=== PATIENT | female | born 1970 | race Caucasian/White ===

== ENCOUNTER 2020-11-10 09:01 | Day surgery (SDC) | payer BC ==
[~2020-11-10 09:01] MED LIST: CEFAZOLIN 2 GM-D5W BAG** 2 GM/50 ML ML IV SCH; Lactated Ringers 1,000 ML IV SCH
[2020-11-10] MEDS ORDERED: Lactated Ringers 1,000 ML IV ONE ×2 (09:10→13:11)
[2020-11-10] MEDS ORDERED: CEFAZOLIN 2 GM-D5W BAG** 2 GM/50 ML ML IV ONE (09:10)
[2020-11-10 09:36] VITALS: O2SAT 100
[2020-11-10] MEDS ORDERED: SUBLIMAZE 100 MCG/2 ML ONE (12:43)
[2020-11-10] MEDS ORDERED: DIPRIVAN 200 MG/20 ML IV ONE (12:43)
[2020-11-10] MEDS ORDERED: Versed 2 MG/2 ML Injection ONE (12:43)
[2020-11-10] MEDS ORDERED: Decadron 4 MG INJ ONE (13:33)
[2020-11-10] MEDS ORDERED: TORAdol 30 mg Injection ONE (13:33)
[2020-11-10] MEDS ORDERED: Zofran 4 MG/2 ML VIAL ONE (13:33)
[2020-11-10 15:02] VITALS: BP 141/97; PULSE 58
--- NOTE | 2020-11-11 10:34 | OP ---
SURGERY DATE/TIME: 11/10/2020 1309 PREOPERATIVE DIAGNOSIS: Abnormal uterine bleeding. POSTOPERATIVE DIAGNOSIS: Abnormal uterine bleeding. PROCEDURE: Hysteroscopy D&C with NovaSure ablation. SURGEON: Dequan Bishop D.O. RESIDENT DIRECTOR: broadcast technician. ANESTHESIA: General. ESTIMATED BLOOD LOSS: Minimal. COMPLICATIONS: N one. INDICATIONS: The risks, benefits, indications and alternatives of the procedure were reviewed with the patient prior to the procedure. The patient understood the risk of infection, bleeding, bowel injury, bladder injury, ureteral injury, uterine perforation, pelvic infection, thromboembolic disorder associated with the surgery however desires to have this surgery as a possible means to alleviate her current medical condition. DESCRIPTION OF PROCEDURE AND FINDINGS: At this point the patient is taken to the operating room, given general sedation, placed in dorsal lithotomy position. Prepped and draped in the usual sterile fashion. A weighted speculum is then placed in the patient's vagina and the anterior lip of the cervix is grasped with a single tooth tenaculum. Endocervical dilators were advanced through the endocervical canal as a means to dilate the cervix and the uterus sounded to approximately 8 to 9 cm. From this point a 5 mm hysteroscope was then placed into the endocervical region where visualization of the uterine cavity appeared to be within normal limits. From this point the hysterectomy was then removed and the curette was then placed into the fundus of the uterus where curettage was performed in all quadrants of the uterus retrieving a mild to moderate amount of tissue. From this point the curette was removed and the NovaSure instrument was then placed through the endocervical canal where a measurement of 6 cm of length was given and a width of 2.8 cm. The NovaSure was then turned on for an ablative time of approximately 55 seconds. At the completion of the ablation the NovaSure was disengaged and then removed from the uterine cavity. From this point all other instruments were subsequently removed from the patient's vaginal region. The patient was then taken out of dorsal lithotomy position, was taken out of anesthesia and was then taken to the recovery room in stable condition. All instruments and laps were accounted for x2.
== END 2020-11-10 14:55 | disposition home or self-care (01) ==
LOC: SDC 09:01 → EDSTATUS 17:46
PROVIDERS: ATTEND Obstetrics & Gynecology
DX: N93.9 Abnormal uterine and vaginal bleeding, unspecified (principal)
CPT/HCPCS: 84703; J0690; J1100; J1885; J2250; J2405; J2704; J3010

== ENCOUNTER 2022-01-23 08:02 | Emergency (ER) | payer BC ==
[2022-01-23] MEDS ORDERED: XYLOCAINE 1% HCL 20 ML MDV IJ ONE (08:03)
--- NOTE | 2022-01-23 08:45 | ERPHSYRPT ---
- History of Present Illness Source: patient Exam Limitations: other (Poor historian) Patient Subjective Stated Complaint: Patient c/o of suspect kidney infection, body aches, joint aches, along with a sore throat, fever and vomiting each morning which started Friday 01/19. Triage Nursing Assessment: Patient to ED with suspect kidney infection. States her pain is a 4 at this time. interacting appropriately with nurse. VS WNL. Throat redness, no white patches noted. Physician History: 51 yo wf w B CVA pain x 4 days. Pt is currently being treated for a UTI per [facility]READ[facility] phone call w Bactrim. She was recently treated w another antibiotic for a UTI. She has mild nausea/occ vomiting/subjective fever/St/mild cough but denies dysuria/hematuria. Timing/Duration: other (4 days) Activites at Onset: none Onset Location: other (B CVA) Pain Radiation: none Severity of Pain-Max: mild Severity of Pain-Current: mild Prior abdominal problems: similar symptoms Sexual intercourse history: non-contributory Modifying Factors: Improves With: nothing Associated Symptoms: fever, nausea, vomiting, urinary frequency, lower back pain, No abdominal pain, No chills, No diaphoresis, No dysuria, No nocturia, No polyuria, No , No loss of bladder control, No lumps, No mass, No swelling Allergies/Adverse Reactions: No Known Drug Allergies Allergy (Verified 01/23/22 08:19) Home Medications: Sulfamethoxazole/Trimethoprim [Bactrim 400-80 mg Tablet] 1 tab PO BID 01/23/22 [History] Hx Tetanus, Diphtheria Vaccination/Date Given: Yes Hx Influenza Vaccination/Date Given: No Hx Pneumococcal Vaccination/Date Given: No Travel Risk - International Travel Have you traveled outside of the country in past 3 weeks: No - Coronavirus Screening Symptoms: Fever, Cough: New Onset, Vomiting/Diarrhea, Headaches/Body Aches/Fatigue Close contact with a COVID-19 positive Pt in past 14-21 Days: No - Vaccine Status Have you recieved a Covid-19 vaccination: No - Review of Systems Constitutional: No Symptoms, Fever Eyes: No Symptoms Ears, Nose, & Throat: No Symptoms, Throat Pain Respiratory: No Symptoms, Cough Cardiac: No Symptoms Abdominal/Gastrointestinal: Nausea, Vomiting Genitourinary Symptoms: No Symptoms, No Dysuria, No Frequency, No Hematuria, No Hesitancy, No Incontinence, No Urgency, No Urinary Retention, No Flank Pain, No Menorrhagia, No , No Vaginal Bleeding, No Vaginal Discharge, No Vaginal Itching Musculoskeletal: No Symptoms, Arthralgias Skin: No Symptoms Neurological: No Symptoms Psychological: No Symptoms Endocrine: No Symptoms Hematologic/Lymphatic: No Symptoms Immunological/Allergic: No Symptoms - Past Medical History Pertinent Past Medical History: Yes Neurological History: No Pertinent History ENT History: No Pertinent History Cardiac History: No Pertinent History Respiratory History: No Pertinent History Endocrine Medical History: Hypothyroidism Musculoskeletal History: No Pertinent History GI Medical History: No Pertinent History History: No Pertinent History Psycho-Social History: No Pertinent History Female Reproductive Disorders: Other Other Medical History: abnormal uterine bleeding - Past Surgical History Past Surgical History: Yes Neuro Surgical History: No Pertinent History Cardiac: No Pertinent History Respiratory: No Pertinent History Gastrointestinal: No Pertinent History Genitourinary: Other Musculoskeletal: No Pertinent History Female Surgical History: No Pertinent History Other Surgical History: had ureters relocated as child for vesicoureteral reflux - Social History Smoking Status: Current every day smoker How long have you smoked: age 17 Exposure to second hand smoke: Yes Drug Use: none Patient Lives Alone: No Significant Family History: no pertinent family hx - Nursing Vital Signs Nursing Vital Signs: Initial Vital Signs Temperature 98.4 F 01/23/22 08:10 Pulse Rate 100 H 01/23/22 08:10 Respiratory Rate 18 01/23/22 08:10 Blood Pressure 110/69 01/23/22 08:10 O2 Sat by Pulse Oximetry 100 01/23/22 08:10 Pain Scale Pain Intensity 3 Borderline tachy - Physical Exam General Appearance: no apparent distress Eye Exam: PERRL/EOMI, eyes nml inspection Ears, Nose, Throat Exam: normal ENT inspection, TMs normal, pharynx normal, ruth st mucous membranes Neck Exam: normal inspection, non-tender, supple, full range of motion Respiratory Exam: airway intact, crackles/rales (Faint B rales) Cardiovascular Exam: regular rate/rhythm, normal heart sounds, normal peripheral pulses, capillary refill <2 sec, No murmur, No friction rub Gastrointestinal/Abdomen Exam: soft, normal bowel sounds, tenderness, No distention Back Exam: CVA tenderness (B) Extremity Exam: normal inspection, normal range of motion Neurologic Exam: alert, oriented x 3, cooperative, medical records coder II-XII nml as tested, normal mood/affect, nml cerebellar function, nml station & gait, sensation nml, No motor deficits, No sensory deficit Skin Exam: normal color, warm, dry Lymphatic Exam: No adenopathy SpO2 Interpretation: normal SpO2: 100 O2 Delivery: Room Air - Course Nursing assessment & vital signs reviewed: Yes - CT Exams Abdomen/Pelvis CT Interpretation: Tele-radiologist Report (LLL 1.7cm subpleural nodule/infiltrate) Ordered Tests: Active Orders 24 hr Category Date Time Status ABDOMEN AND PELVIS W/0 CONTRAS [CT] Stat Exams 01/23/22 09:03 Taken HCG,QUALITATIVE URINE Stat Lab 01/23/22 08:40 Completed UA W/RFX CULTURE Stat Lab 01/23/22 08:34 Completed Medication Summary Discontinued Medications Generic Name Dose Route Start Last Admin Trade Name Freq PRN Reason Stop Dose Admin Ceftriaxone Sodium 1,000 mg 01/23/22 10:40 01/23/22 10:45 Ceftriaxone Sodium 1000 Mg Inj Vial IM 01/23/22 10:41 1,000 mg STAT ONE Administration Ceftriaxone Sodium Confirm 01/23/22 10:42 Ceftriaxone Sodium 1000 Mg Inj Vial Administered 01/23/22 10:43 Dose 1,000 mg .ROUTE .STK-MED ONE Ketorolac Tromethamine 30 mg 01/23/22 09:06 01/23/22 09:09 Ketorolac Tromethamine 30 Mg/Ml Inj IM 01/23/22 09:07 30 mg STAT ONE Administration Ketorolac Tromethamine Confirm 01/23/22 09:07 Ketorolac Tromethamine 30 Mg/Ml Inj Administered 01/23/22 09:08 Dose 30 mg .ROUTE .STK-MED ONE Lab/Rad Data: Laboratory Results 01/23/22 01/23/22 01/23/22 Range/Units Unknown 08:40 08:34 Urinalys Dipstick Clnc MAIN LAB Urine Color YELLOW (YELLOW) Urine Appearance CLEAR (CLEAR) Urine pH 7.5 (5-6) Ur Specific [place] 1.020 (1.005-1.025) POC Urine Protein Conf NEGATIVE (Negative) Urine Ketones NEGATIVE (NEGATIVE) Urine Nitrite NEGATIVE (NEGATIVE) Urine Bilirubin NEGATIVE (NEGATIVE) Urine Urobilinogen 1 (0-1) mg/dL Urine Leukocytes NEGATIVE (NEGATIVE) Urine WBC (Auto) NONE (0-5) /HPF Urine RBC (Auto) 3-5 (0-2) /HPF U Epithel Cells (Auto) RARE (FEW) /HPF Urine Bacteria (Auto) RARE (NEGATIVE) /HPF Urine RBC SMALL (0-5) Tyler/ul Unidentified Crystals 2-5 (NEGATIVE) /HPF Urine Mucus (Auto) SLIGHT (NEGATIVE) /HPF Ur Culture Indicated? NO Urine Glucose NEGATIVE (NEGATIVE) mg/dL Urine HCG, Qual NEGATIVE (Negative) Group A Strep Antibody NOT DETECTED (NEGATIVE) - Progress Progress: improved Progress Note: 01/23/22 10:41 1gm IM Rocephin Pt advised that she needs another CT of chest in 3 months to recheck nodule Counseled pt/family regarding: lab results, diagnosis, need for follow-up, rad results - Departure Departure Disposition: Home Clinical Impression: Pneumonia Condition: Stable Critical Care Time: No Referrals: MAYA ZAMUDIO [Primary Care Provider] - Follow up/PCP as directed Instructions: Pneumonia, Adult (DC) Additional Instructions: Levaquin once a day for 5 days Rest/Fluids Follow up with your family MD in 2-3 days You will need a repeat CT of chest in 3 months to see if nodule/pneumonia resolves Return to ER for increasing shortness of breath or temperature greater than 100.5 Forms: Work/School Release Form Prescriptions: Levofloxacin [Levofloxacin 250MG Tablet] 750 mg PO DAILY 5 Days #5 tab
[2022-01-23 08:57] LABS: Bacteria RARE /HPF (NEGATIVE); Epithelial Cells RARE /HPF (FEW); Mucus SLIGHT /HPF (NEGATIVE)
[2022-01-23 08:58] LABS: Appearance CLEAR (CLEAR); Bilirubin NEGATIVE (NEGATIVE); Glucose NEGATIVE (NEGATIVE); Urine Cultured Indicated? NO
[2022-01-23 08:59] LABS: Dipstick done @ ? MAIN LAB; Ketones NEGATIVE (NEGATIVE); Nitrite NEGATIVE (NEGATIVE); Ph 7.5 (5-6); Protein,Urine Dip NEGATIVE (Negative); RBC SMALL Ery/ul (0-5); Urobilinogen 1 mg/dL (0-1)
[2022-01-23] MEDS ORDERED: TORAdol 30 mg Injection ONE (09:07)
[2022-01-23] MEDS: TORAdol 30 mg Injection IM ONE (09:09)
[2022-01-23] MEDS ORDERED: Rocephin 1000 MG INJ ONE (10:42)
[2022-01-23] MEDS: Rocephin 1000 MG INJ IM ONE (10:45)
[2022-01-23 10:49] VITALS: BP 115/60; PULSE 88
[2022-01-23 17:55] VITALS: O2SAT 100
--- NOTE | 2022-01-23 21:07 | XRAY ---
Indication: Right back and right lower quadrant pain. Multiple contiguous axial images obtained through the abdomen and pelvis without contrast. Comparison: None Lung bases demonstrates patchy peripheral left lower lobe consolidating/nonconsolidating airspace disease. Heart is not enlarged. Noncontrasted stomach and bowel loops appear nonobstructed. Normal retrocecal appendix. Moderate diffuse scattered colonic fecal debris throughout. No free fluid/air. Remaining liver, gallbladder, pancreas, spleen, adrenal glands, kidneys, ureters, bladder, uterus, and aorta are unremarkable for noncontrast exam. Osseous structures intact. No ventral or inguinal hernias. Impression: 1. Moderate diffuse fecal stasis. 2. Left lower lobe consolidating/nonconsolidating airspace disease. 3. Remaining CT abdomen/pelvis without contrast exam is negative. Common: Preliminary interpretation made by [facility]. No critical discrepancy.
== END 2022-01-23 11:00 | disposition home or self-care (01) ==
LOC: ED 08:02
DX: J18.9 Pneumonia, unspecified organism (principal); R10.9 Unspecified abdominal pain; R11.2 Nausea with vomiting, unspecified; J02.9 Acute pharyngitis, unspecified; R05.9 Cough, unspecified; R50.9 Fever, unspecified; Z72.0 Tobacco use
CPT/HCPCS: 74176; 81015; 84703; 87651; 96372; 99284; J0696; J1885

== ENCOUNTER 2022-06-26 17:58 | Emergency (ER) | payer BC ==
[2022-06-26 19:13] VITALS: BP 155/79; PULSE 72; O2SAT 100
--- NOTE | 2022-06-26 19:20 | ERPHSYRPT ---
- History of Present Illness Time Seen by Provider: 06/26/22 19:16 Source: patient Exam Limitations: no limitations Patient Subjective Stated Complaint: stepped into hole 06/26/22 at appx 10am and felt a pop in her left ankle Triage Nursing Assessment: Patient's ROM with left ankle is limited. No bruising, no edema, no deformities, no wounds. Pedal and post tibial pulses WNL. Skin color WNL for race. Sensation intact. Physician History: twist left ankle and foot stepping in a hole. No other injuries and did not fall down. was able to keep walking today but as did not resolve came in to have it checked. tender dorsum left foot to sole and left lateral malleolus. full ROm otw without pain for hips, knees and opp side. dod not fall or hit other areas like head or abd or chest or back. Method of Injury: twisted Occurred: this morning Quality: constant, sharpness Severity of Pain-Max: moderate Severity of Pain-Current: moderate Lower Extremities Pain: foot: left, ankle: left Modifying Factors: Improves With: immobilization, movement Associated Symptoms: popping sensation Allergies/Adverse Reactions: No Known Drug Allergies Allergy (Verified 06/26/22 19:05) Home Medications: Meloxicam 7.5 mg PO DAILY 06/26/22 [History] Hx Tetanus, Diphtheria Vaccination/Date Given: No Hx Influenza Vaccination/Date Given: No Hx Pneumococcal Vaccination/Date Given: No Travel Risk - International Travel Have you traveled outside of the country in past 3 weeks: No - Coronavirus Screening Are you exhibiting any of the following symptoms?: No Close contact with a COVID-19 positive Pt in past 14-21 Days: No - Vaccine Status Have you recieved a Covid-19 vaccination: No - Review of Systems Constitutional: No Fever, No Chills Eyes: No Symptoms Ears, Nose, & Throat: No Symptoms Respiratory: No Cough, No Dyspnea Cardiac: No Chest Pain, No Edema, No Syncope Abdominal/Gastrointestinal: No Abdominal Pain, No Nausea, No Vomiting, No Diarrhea Genitourinary Symptoms: No Dysuria Musculoskeletal: Injury, Joint Pain, Joint Swelling, No Back Pain, No Neck Pain Skin: No Rash Neurological: No Dizziness, No Focal Weakness, No Sensory Changes Psychological: No Symptoms Endocrine: No Symptoms Hematologic/Lymphatic: No Symptoms Immunological/Allergic: No Symptoms All Other Systems: Reviewed and Negative - Past Medical History Pertinent Past Medical History: Yes Neurological History: No Pertinent History ENT History: No Pertinent History Cardiac History: No Pertinent History Respiratory History: No Pertinent History Endocrine Medical History: Hypothyroidism Musculoskeletal History: No Pertinent History GI Medical History: No Pertinent History History: No Pertinent History Psycho-Social History: No Pertinent History Female Reproductive Disorders: Other Other Medical History: seasonal allergies, joint pain - Past Surgical History Past Surgical History: Yes Neuro Surgical History: No Pertinent History Cardiac: No Pertinent History Respiratory: No Pertinent History Gastrointestinal: No Pertinent History Genitourinary: Other Musculoskeletal: No Pertinent History Female Surgical History: No Pertinent History Other Surgical History: had ureters relocated as child for vesicoureteral reflux, x 3, uterine ablation - Social History Smoking Status: Current every day smoker How long have you smoked: 30 Exposure to second hand smoke: Yes Drug Use: none Patient Lives Alone: No Significant Family History: no pertinent family hx - Nursing Vital Signs Nursing Vital Signs: Initial Vital Signs Temperature 97.9 F 06/26/22 19:07 Pulse Rate 72 06/26/22 19:07 Respiratory Rate 20 06/26/22 19:07 Blood Pressure 155/79 06/26/22 19:07 O2 Sat by Pulse Oximetry 100 06/26/22 19:07 Pain Scale Pain Intensity 8 - Physical Exam General Appearance: alert Eyes, Ears, Nose, Throat Exam: moist mucous membranes Neck Exam: non-tender, supple Cardiovascular/Respiratory Exam: chest non-tender, normal breath sounds, regular rate/rhythm, no respiratory distress Gastrointestinal/Abdominal Exam: non-tender, guarding Back Exam: normal inspection, No vertebral tenderness Hips Exam: bilateral: non-tender, normal inspection, normal range of motion, no evidence of injury Legs Exam: bilateral leg: non-tender, normal inspection, normal range of motion, no evidence of injury Knees Exam: bilateral knee: non-tender, normal inspection, normal range of motion, no evidence of injury Ankle Exam: right ankle: non-tender, normal inspection, normal range of motion, no evidence of injury, left ankle: bone tenderness, joint effusion, limited range of motion, pain, soft tissue tenderness, swelling Foot Exam: right foot: non-tender, normal inspection, normal range of motion, no evidence of injury, left foot: bone tenderness, limited range of motion, pain, soft tissue tenderness, swelling DTR - Lower Extremities Exam: knee (R): 2+, knee (L): 2+, ankle (R): 2+, ankle (L): 2+ Neuro/Tendon Exam: normal sensation, normal motor functions, normal tendon functions Mental Status Exam: alert, oriented x 3, cooperative Skin Exam: normal color, warm, dry SpO2 Interpretation: normal SpO2: 100 O2 Delivery: Room Air - Course Nursing assessment & vital signs reviewed: Yes - Radiology Exams Left Ankle X-ray Interpretation: Reviewed by me, Other (No obvious fracture) Left Foot X-ray Interpretation: Reviewed by me, Other (concern for occult fx left proximal 3 and 4th mets. ) Ordered Tests: Active Orders 24 hr Category Date Time Status ANKLE (3 VIEWS) Stat Exams 06/26/22 19:21 Taken FOOT (MINIMUM 3 VIEWS) Stat Exams 06/26/22 19:21 Taken - Progress Progress: improved, re-examined Counseled pt/family regarding: diagnosis, need for follow-up, rad results - Departure Departure Disposition: Home Clinical Impression: Sprain of anterior talofibular ligament of left ankle, Posterior tibialis tendon insufficiency, occult fracture left metatarsals Condition: Good Critical Care Time: No Referrals: JOHNNA LECHUGA NP [Primary Care Provider] - Follow up/PCP as directed Instructions: Ankle Sprain (DC), Foot Sprain (DC), Foot Fracture (DC) Additional Instructions: final x-ray reports tomorrow. we suspect a fracture at the base of the metatarsals or at least a ligament injury and have provided instructions. Followup with the orthopedic this week. Return meantime if any concerns, numbness or otherwise. use tylenol or alleve for pain.
--- NOTE | 2022-06-27 08:57 | XRAY ---
Indication: Pain following stepping injury. Comparison: None 3 view left ankle demonstrate mild osteopenia. No other bony, articular, or soft tissue abnormalities.
--- NOTE | 2022-06-27 08:59 | XRAY ---
Indication: Pain following stepping injury. Comparison: None 3 nonweightbearing views left foot demonstrate mild osteopenia. No other bony, articular, or soft tissue abnormalities.
== END 2022-06-26 21:09 | disposition home or self-care (01) ==
LOC: ED 17:58
DX: S93.492A Sprain of other ligament of left ankle, initial encounter (principal); S96.812A Strain of other specified muscles and tendons at ankle and foot level, left foot, initial encounter; S92.332A Displaced fracture of third metatarsal bone, left foot, initial encounter for closed fracture; S92.342A Displaced fracture of fourth metatarsal bone, left foot, initial encounter for closed fracture; W18.42XA Slipping, tripping and stumbling without falling due to stepping into hole or opening, initial encounter; Z72.0 Tobacco use; Z79.899 Other long term (current) drug therapy; Z28.310 Unvaccinated for COVID-19
CPT/HCPCS: 29515; 73610; 73630; 99283

== ENCOUNTER 2024-03-01 06:28 | Day surgery (SDC) | payer OTHER ==
[2024-03-01] MEDS ORDERED: CEFAZOLIN 2 GM-D5W BAG** 2 GM/50 ML ML IV ONE (07:01)
[2024-03-01] MEDS: CEFAZOLIN 2 GM-D5W BAG** 2 GM/50 ML ML IV ONE (07:02)
[2024-03-01] MEDS: Lactated Ringers 1,000 ML IV SCH (07:02)
[2024-03-01] MEDS ORDERED: Lactated Ringers 1,000 ML IV ONE (07:02)
[2024-03-01 07:15] VITALS: O2SAT 100
[2024-03-01] MEDS ORDERED: Xylocaine 1% Vial 30 ML PF IJ ONE (08:00)
[2024-03-01] MEDS ORDERED: Versed 2 MG/2 ML Injection ONE ×2 (08:47→08:51)
[2024-03-01] MEDS ORDERED: DIPRIVAN 200 MG/20 ML IV ONE (09:08)
[2024-03-01 10:07] VITALS: RESP 18
[2024-03-01] MEDS: NORCO 5/325 MG PO PRN (10:15)
[2024-03-01 10:27] VITALS: BP 133/76; PULSE 63; TEMP 97.5
--- NOTE | 2024-03-02 09:36 | OP ---
SURGERY DATE/TIME: 03/01/2024 2452 - [id number] PREOPERATIVE DIAGNOSIS: Right carpal tunnel syndrome. POSTOPERATIVE DIAGNOSIS: Right carpal tunnel syndrome. PROCEDURE: Right carpal tunnel release. SURGEON: Benny Lee DO ANESTHESIA: Devon block. DESCRIPTION OF PROCEDURE AND FINDINGS: The patient was identified and informed consent was obtained. The patient was taken to the operative suite and placed in the supine position on the operating table where the Devon block anesthetic was administered by Anesthesia. Once an appropriate level of anesthesia had been obtained, the right upper extremity was then prepped and draped in the usual sterile fashion. A standard time out was taken. At this point, an incision was carried out from the distal wrist crease to the level of the fully-abducted thumb web space just ulnar to the thenar crease. Skin was incised and dissection was then carried out through the subcutaneous tissue. Heiss retractors were positioned proximally and distally and dissection was then carried out through the superficial palmar fascia. Retractors were repositioned and a Ragnell retractor was now placed proximal into the skin and subcutaneous tissue. At this point, utilizing a fresh 15 blade the transverse carpal ligament was resected. Care was taken to stay on the far ulnar side of the wound. Median nerve was noted to be on the radial side of the wound and well out of harm's way. The nerve was noted to be somewhat flat and hourglass shaped. The floor was inspected, no masses or cysts. The motor branch was inspected and noted to be intact. Antebrachial fascia was then split proximally for a distance of about 2 cm utilizing a pair of baby Metzenbaum scissors under direct vision such that the absorber operator's finger could easily be placed into the canal. The wound was then copiously irrigated and closed with interrupted 5-0 nylon suture. Adaptics, 4 x 4's and a Hannah dressing applied. Patient was then transferred to the cart and taken to Day Surgery in satisfactory condition having tolerated the procedure well.
== END 2024-03-01 11:05 | disposition home or self-care (01) ==
LOC: SDC 06:28
PROVIDERS: ATTEND Orthopaedic Surgery
DX: G56.01 Carpal tunnel syndrome, right upper limb (principal)
CPT/HCPCS: J0690; J1642; J2250; J2704; A9270-GY

== ENCOUNTER 2024-05-30 10:27 | Day surgery (SDC) | payer OTHER ==
[2024-05-30] MEDS ORDERED: Xylocaine-Mpf 2% 5 Ml Vial IJ ONE (10:28)
[2024-05-30] MEDS ORDERED: DIPRIVAN 200 MG/20 ML IV ONE (12:32)
[2024-05-30] MEDS ORDERED: Lactated Ringers 1,000 ML IV ONE (14:04)
--- NOTE | 2024-05-30 15:05 | XRAY ---
Indication: Bilateral T6-T8 MBB. Intraoperative fluoroscopy provided for 16 seconds. Single digital spot image submitted for interpretation demonstrates posterior needle tips projecting over the expected left and right T6-T8 nerve roots. Correlate with intraoperative findings/report.
--- NOTE | 2024-05-30 15:24 | XRAY ---
16 seconds of fluoroscopy was used in surgery for a bilateral T6-T8 MBB.
== END 2024-05-30 13:15 | disposition home or self-care (01) ==
LOC: SDC-PAIN 10:27
PROVIDERS: ATTEND Psychiatry & Neurology Pain Medicine
DX: M47.814 Spondylosis without myelopathy or radiculopathy, thoracic region (principal)
CPT/HCPCS: 64490; 64491; 72072; 77002; J2704

== ENCOUNTER 2024-07-03 10:27 | Day surgery (SDC) | payer OTHER ==
[2024-07-03] MEDS ORDERED: Decadron 4 MG INJ IV ONE (10:28)
[2024-07-03] MEDS ORDERED: Xylocaine-Mpf 2% 5 Ml Vial IJ ONE (10:28)
[2024-07-03] MEDS ORDERED: DIPRIVAN 200 MG/20 ML IV ONE (12:03)
--- NOTE | 2024-07-03 13:45 | XRAY ---
Indication: Right C2-C4 MBB. Intraoperative fluoroscopy provided for 10 seconds. 2 digital spot image submitted for interpretation demonstrates posterior needle tips projecting over the expected right C2-C4 nerve roots. Correlate with intraoperative findings/report.
--- NOTE | 2024-07-03 13:53 | XRAY ---
10 seconds of fluoroscopy was used in surgery for a right C2-C4 MBB.
== END 2024-07-03 12:09 | disposition home or self-care (01) ==
LOC: SDC-PAIN 10:27
PROVIDERS: ATTEND Psychiatry & Neurology Pain Medicine
DX: M47.812 Spondylosis without myelopathy or radiculopathy, cervical region (principal)
CPT/HCPCS: 64490; 64491; 72040; 77002; J1100; J2704

== ENCOUNTER 2024-07-24 11:41 | Day surgery (SDC) | payer OTHER ==
[2024-07-24] MEDS ORDERED: Decadron 4 MG INJ IV ONE (11:42)
[2024-07-24] MEDS ORDERED: Xylocaine-Mpf 2% 5 Ml Vial IJ ONE (11:42)
[2024-07-24] MEDS ORDERED: DIPRIVAN 200 MG/20 ML IV ONE (13:51)
--- NOTE | 2024-07-24 14:24 | XRAY ---
Indication: Right C4-C6 MBB. Intraoperative fluoroscopy provided for 26 seconds. 2 digital spot image submitted for interpretation demonstrates posterior needle tips projecting over the expected right C4-C6 nerve roots. Correlate with intraoperative findings/report.
--- NOTE | 2024-07-24 14:54 | XRAY ---
26 seconds of fluoroscopy was used in surgery for a right C4-C6 MBB.
== END 2024-07-24 14:26 | disposition home or self-care (01) ==
LOC: SDC-PAIN 11:41
PROVIDERS: ATTEND Psychiatry & Neurology Pain Medicine
DX: M47.812 Spondylosis without myelopathy or radiculopathy, cervical region (principal)
CPT/HCPCS: 72040; 77002; J1100; J2704

== ENCOUNTER 2024-10-16 12:18 | Day surgery (SDC) | payer BC, OTHER ==
[2024-10-16] MEDS ORDERED: BUPIVACAINE 0.5% VIAL IJ ONE (12:19)
[2024-10-16] MEDS ORDERED: dexAMETHasone sodium phosphate IJ ONE (12:19)
[2024-10-16 13:25] LABS: HCG URINE TEST NEGATIVE (NEGATIVE)
[2024-10-16] MEDS ORDERED: propofoL IV ONE (14:27)
--- NOTE | 2024-10-16 16:30 | XRAY ---
Indication: Right C4-C6 MBB. Intraoperative fluoroscopy provided for 14 seconds. 2 digital spot image submitted for interpretation demonstrates posterior needle tips projecting over expected right C4-C6 nerve roots. Correlate with intraoperative findings/report.
--- NOTE | 2024-10-16 16:43 | XRAY ---
14 seconds of fluoroscopy was used in surgery for a right C4-C6 MBB.
== END 2024-10-16 14:52 | disposition home or self-care (01) ==
LOC: SDC-PAIN 12:18
PROVIDERS: ATTEND Psychiatry & Neurology Pain Medicine
DX: M47.812 Spondylosis without myelopathy or radiculopathy, cervical region (principal)
CPT/HCPCS: 64490; 64491; 72040; 77002; 81025; J1100; J2704

== ENCOUNTER 2024-11-13 08:13 | Day surgery (SDC) | payer BC ==
[2024-11-13] MEDS ORDERED: BUPIVACAINE 0.5% VIAL IJ ONE (08:14)
[2024-11-13] MEDS ORDERED: LIDOCAINE HCL 1% 50 MG/5 ML VL IJ ONE (08:14)
[2024-11-13] MEDS ORDERED: dexAMETHasone sodium phosphate IJ ONE (08:14)
[2024-11-13 08:43] LABS: HCG URINE TEST NEGATIVE (NEGATIVE)
[2024-11-13] MEDS ORDERED: Lactated Ringers 500 ML IV ONE (09:13)
[2024-11-13] MEDS ORDERED: propofoL IV ONE (09:42)
--- NOTE | 2024-11-13 12:21 | XRAY ---
Indication: Right C4-C6 RFA. Intraoperative fluoroscopy provided for 24 seconds. 2 digital spot image submitted for interpretation demonstrates posterior needle tips projecting over expected right C4-C6 nerve roots. Correlate with intraoperative findings/report.
--- NOTE | 2024-11-13 12:27 | XRAY ---
24 seconds of fluoroscopy was used in surgery for a right C4-C6 RFA.
== END 2024-11-13 10:15 | disposition home or self-care (01) ==
LOC: SDC-PAIN 08:13
PROVIDERS: ATTEND Psychiatry & Neurology Pain Medicine
DX: M47.812 Spondylosis without myelopathy or radiculopathy, cervical region (principal)
CPT/HCPCS: 64633; 64634; 72040; 77002; 81025; J1100; J2704